=== PATIENT | female | born 1980 | race Caucasian/White ===

== ENCOUNTER 2017-11-25 09:31 | Emergency (ER) | payer BC ==
[2017-11-25 09:44] VITALS: BP 112/67
--- NOTE | 2017-11-25 09:59 | UC ---
Respiratory Complaint HPI - HPI Summary HPI Summary: Patient here today complains of 7 days chest and sinus congestion.Patient has been out of work since August due to 2 bilateral mastectomy, stage III breast cancer she is planning to return to work tomorrow. Both her parents who she lives with her here today the urgent care with similar symptoms sheet. She reports being exposed to nieces and nephews who had influenza but that was almost a month ago. Patient states she did not get flu vaccine this year patient continues to smoke cigarettes 1/2-1 pack per day - History of Current Complaint Chief Complaint: UCGeneralIllness Stated Complaint: SINUS ISSUE Time Seen by Provider: 11/25/17 09:51 Hx Obtained From: Patient Hx Last Menstrual Period: last week ?: No Onset/Duration: Sudden Onset, Lasting Days - 7, Still Present Timing: Constant Severity Initially: Moderate Severity Currently: Moderate Pain Intensity: 5 Pain Scale Used: Adult Non Verbal Character: Cough: Nonproductive Aggravating Factors: Nothing Alleviating Factors: Nothing Associated Signs And Symptoms: Positive: Chills, URI, Nasal Congestion, Sinus Discomfort - Allergies/Home Medications Allergies/Adverse Reactions: Allergies Allergy/AdvReac Type Severity Reaction Status Date / Time NSAIDS (Non-Steroidal Allergy Bleeding Verified 11/25/17 09:45 Anti-Inflamma narcotics Allergy Swelling Uncoded 11/25/17 09:45 Of Face,Lips,& Throat Home Medications: Home Medications Sertraline* [Zoloft*] 50 mg PO DAILY 11/25/17 [History Confirmed 11/25/17] Tamoxifen TAB* [Nolvadex 10 MG*] 20 mg PO DAILY 11/25/17 [History Confirmed ] PMH/Surg Hx/FS Hx/Imm Hx Previously Healthy: No Psychological History: Depression Cancer History: Breast Cancer - Surgical History Surgical History: Yes Surgery Procedure, Year, and Place: bladder sling 2008. Tubal Ligation. 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 Respiratory: Cough Cardiovascular: Negative Gastrointestinal: Negative Genitourinary: Negative Motor: Negative Neurovascular: Negative Musculoskeletal: Arthralgia Neurological: Headache Psychological: Negative Is Patient Immunocompromised?: No All Other Systems Reviewed And Are Negative: Yes Physical Exam Triage Information Reviewed: Yes Appearance: Ill-Appearing, Pain Distress - mild, Thin - Like eating I certainly did apply warm Vital Signs: Initial Vital Signs Temp 98.5 F 11/25/17 09:39 Pulse 68 11/25/17 09:39 Resp 18 11/25/17 09:39 BP 112/67 11/25/17 09:39 Pulse Ox 99 11/25/17 09:39 Vital Signs Reviewed: Yes Eye Exam: Normal Eyes: Positive: Conjunctiva Clear ENT Exam: Normal ENT: Positive: Normal ENT inspection, Hearing grossly normal, Pharynx normal, Nasal congestion, Nasal drainage, TMs normal, Sinus tenderness, Uvula midline. Negative: Tonsillar swelling, Trismus, Muffled voice, Hoarse voice, Dental tenderness Dental Exam: Normal Neck exam: Normal Neck: Positive: Supple, Nontender, No Lymphadenopathy Respiratory Exam: Normal Respiratory: Positive: Chest non-tender, Lungs clear, Normal breath sounds, No respiratory distress, No accessory muscle use Cardiovascular Exam: Normal Cardiovascular: Positive: RRR, No Murmur, Pulses Normal, Brisk Capillary Refill Musculoskeletal Exam: Normal Musculoskeletal: Positive: Strength Intact, ROM Intact, No Edema Neurological Exam: Normal Neurological: Positive: Alert Psychological Exam: Normal Skin Exam: Normal UC Diagnostic Evaluation - Laboratory O2 Sat by Pulse Oximetry: 99 Diagnostic Studies Comment: Influenza A/B (-) Respiratory Course/Dx - Course Course Of Treatment: Augmentin for sinus infection, Mucinex D, Flonase nasal spray, use probiotic will give taking the antibiotic, increase fluids, follow with primary care if needed - Differential Dx/Diagnosis Provider Diagnoses: Nicotine dependent, acute rhinosinusitis Discharge - Discharge Plan Condition: Stable Disposition: HOME Prescriptions: Amoxicillin/Clavulanate TAB* [Augmentin TAB 875*] 875 mg PO BID #20 tab Fluticasone NASAL SPRAY 50MCG* [Flonase NASAL SPRAY 50MCG*] 2 spray BOTH NARES DAILY #1 btl Patient Education Materials: Decongestant/Expectorant (By mouth), Probiotic ( By mouth), Sinusitis (ED), How to Use Nasal Combs (ED) Forms: *Work Release Referrals: Rachell Thomson MD [Primary Care Provider] - If Needed
== END 2017-11-25 10:52 | disposition home or self-care (01) ==
LOC: UCEAST 09:31
DX: J01.90 Acute sinusitis, unspecified (principal); F32.9 Major depressive disorder, single episode, unspecified; Z88.6 Allergy status to analgesic agent; Z88.5 Allergy status to narcotic agent; F17.210 Nicotine dependence, cigarettes, uncomplicated
CPT/HCPCS: 87502; 99202; G0463

== ENCOUNTER 2018-04-30 14:18 | Emergency (ER) | payer BC ==
[2018-04-30 14:43] VITALS: BP 102/67
--- NOTE | 2018-04-30 14:48 | UC ---
Skin Complaint HPI - HPI Summary HPI Summary: 37 yo female presents with red area to the back of her right lower leg. She tells me that she first noticed the area and thought it was a pimple 3 days ago. She popped it and drained a lot of "pus". Since that time the area has been red, swollen, and tender. She has not been applying anything OTC or keeping the area covered. Denies hx of MRSA. - History of Current Complaint Chief Complaint: UCSkin Time Seen by Provider: 04/30/18 14:48 Stated Complaint: SKIN ISSUE Hx Obtained From: Patient Hx Last Menstrual Period: last week Onset/Duration: Gradual Onset Skin Exposure Onset/Duration: Hours Ago Onset Severity: Moderate Current Severity: Severe Pain Intensity: 8 Pain Scale Used: 0-10 Numeric - Allergy/Home Medications Allergies/Adverse Reactions: Allergies Allergy/AdvReac Type Severity Reaction Status Date / Time NSAIDS (Non-Steroidal Allergy Bleeding Verified 04/30/18 14:43 Anti-Inflamma narcotics Allergy Swelling Uncoded 04/30/18 14:43 Of Face,Lips,& Throat Review of Systems Constitutional: Negative Skin: Other - Abscess right lower leg Respiratory: Negative Cardiovascular: Negative Neurovascular: Negative Neurological: Negative Psychological: Negative All Other Systems Reviewed And Are Negative: Yes PMH/Surg Hx/FS Hx/Imm Hx - Additional Past Medical History Additional PMH: BRCA - Surgical History Surgical History: Yes Surgery Procedure, Year, and Place: bladder sling 2009. Tubal Ligation. Bilateral masectomies - Family History Known Family History: Positive: Respiratory Disease - Social History Lives: With Family Alcohol Use: Occasionally Substance Use Type: Marijuana Substance Use Comment - Amount & Last Used: every other weekend Smoking Status (MU): Light Every Day Tobacco Smoker Type: Cigarettes Amount Used/How Often: 1 ppd Physical Exam - Summary Physical Exam Summary: GENERAL: NAD. WDWN. No pain distress. SKIN: Right lower leg: Posterior distal aspect with 1.0cm diameter abscess with central scab. Mild surrounding erythema and TTP. No induration. No streaking, bleeding, or drainage. NECK: Supple. Nontender. No lymphadenopathy. CHEST: No accessory muscle use. Breathing comfortably and in no distress. CV: Pulses intact. Cap refill <2seconds NEURO: Alert. CN II-XII grossly intact. PSYCH: Age appropriate behavior. Triage Information Reviewed: Yes Vital Signs: Initial Vital Signs Temp 98.4 F 04/30/18 14:39 Pulse 76 04/30/18 14:39 Resp 18 04/30/18 14:39 BP 102/67 04/30/18 14:39 Pulse Ox 100 04/30/18 14:39 Vital Signs Reviewed: Yes Course/Dx - Course Course Of Treatment: No drainage was able to be expressed, therefore no culture was obtained. Will cover for MRSA with bactrim. Wound was bandaged with a band- aid and pt advised to cover daily until well healed. - Diagnoses Provider Diagnoses: Abscess right lower leg Discharge - Sign-Out/Discharge Documenting (check all that apply): Patient Departure All imaging exams completed and their final reports reviewed: No Studies - Discharge Plan Condition: Stable Disposition: HOME Prescriptions: Sulfamethox/Trimethoprim DS* [Bactrim DS 800/160 TAB*] 1 tab PO BID #14 tab Patient Education Materials: Abscess (ED) Referrals: Rachell Thomson MD [Primary Care Provider] - Additional Instructions: If you develop a fever, shortness of breath, chest pain, new or worsening symptoms - please call your PCP or go to the ED. - Billing Disposition and Condition Condition: STABLE Disposition: Home
== END 2018-04-30 15:15 | disposition home or self-care (01) ==
LOC: UCEAST 14:18
DX: L02.415 Cutaneous abscess of right lower limb (principal); F17.210 Nicotine dependence, cigarettes, uncomplicated; Z88.6 Allergy status to analgesic agent; Z88.5 Allergy status to narcotic agent
CPT/HCPCS: 99212; G0463

== ENCOUNTER 2018-11-06 07:25 | Emergency (ER) | payer BC ==
[2018-11-06 07:32] VITALS: BP 108/71
--- NOTE | 2018-11-06 09:50 | ED ---
Throat Pain/Nasal Congestion - HPI Summary HPI Summary: Patient is a 38-year-old female who presents emergency department for irritation pain to her left eyelid times one day. Patient states when she woke up this morning she noticed some pain and redness to the outside of her upper eyelid. She does not wear contacts. Denies any injuries. Pain is mild in severity. Touching eye make symptoms worse. Nothing makes symptoms better. Otherwise denies upper respiratory symptoms. - History of Current Complaint Chief Complaint: EDEyeProblem Time Seen by Provider: 11/06/18 07:33 Hx Obtained From: Patient - Allergies/Home Medications Allergies/Adverse Reactions: Allergies Allergy/AdvReac Type Severity Reaction Status Date / Time NSAIDS (Non-Steroidal Allergy Bleeding Verified 11/06/18 07:33 Anti-Inflamma narcotics Allergy Swelling Uncoded 11/06/18 07:33 Of Face,Lips,& Throat PMH/Surg Hx/FS Hx/Imm Hx Previously Healthy: Yes Endocrine/Hematology History: Denies: Hx Diabetes, Hx Thyroid Disease Cardiovascular History: Denies: Hx Congestive Heart Failure, Hx Hypertension Respiratory History: Denies: Hx Asthma, Hx Chronic Obstructive Pulmonary Disease (COPD) GI History: Denies: Hx Ulcer History: Denies: Hx Renal Disease - Cancer History Cancer Type, Location and Year: Stage 3 breast cancer, right side, just completed chemo. - Surgical History Surgery Procedure, Year, and Place: bladder sling 2008. Tubal Ligation. Bilateral masectomies Infectious Disease History: No Infectious Disease History: Denies: Hx Hepatitis, Hx Human Immunodeficiency Virus (HIV), Traveled Outside the [place] in Last 30 Days - Family History Known Family History: Positive: Respiratory Disease - Social History Occupation: Employed Full-time Lives: With Family Alcohol Use: Occasionally Substance Use Type: Reports: Marijuana Substance Use Comment - Amount & Last Used: every other weekend Smoking Status (MU): Light Every Day Tobacco Smoker Type: Cigarettes Amount Used/How Often: 1 ppd Review of Systems Constitutional: Negative Negative: Fever, Chills Positive: Other - Pain and swelling . Negative: Photophobia, Blurred Vision Skin: Negative Neurological: Negative All Other Systems Reviewed And Are Negative: Yes Physical Exam Triage Information Reviewed: Yes Vital Signs On Initial Exam: Initial Vitals Temp Pulse Resp BP Pulse Ox 97.5 F 89 14 108/71 99 11/06/18 07:30 11/06/18 07:30 11/06/18 07:30 11/06/18 07:30 11/06/18 07:30 Vital Signs Reviewed: Yes Appearance: Positive: Well-Appearing - Pt. sitting on bed in NAD. Skin: Positive: Warm, Dry Head/Face: Positive: Normal Head/Face Inspection Eyes: Positive: Normal, EOMI, AGUEDA, Conjunctiva Clear, Other: - Very minimal erythema and edema to upper left lateral eyelid. No drainage. No surrounding erythema or edema. EOMI without pain. Neurological: Positive: Normal, CN Intact II-III Psychiatric: Positive: Affect/Mood Appropriate Diagnostics - Vital Signs Vital Signs Temp Pulse Resp BP Pulse Ox 11/06/18 07:53 97.5 F 89 16 108/71 99 11/06/18 07:30 97.5 F 89 14 108/71 99 - Laboratory Lab Statement: Any lab studies that have been ordered have been reviewed, and results considered in the medical decision making process. EENT Course/Dx - Course Course Of Treatment: We'll treat patient for very mild blepharitis. Advised to apply warm compresses 3 times a day. Erythromycin ointment prescribed. Ad[facility] and return to the ER for increased pain, redness, swelling, pain moving eye. Patient understands and agrees with plan. - Differential Diagnoses Differential Diagnoses: Conjunctivitis, Corneal Abrasion, Foreign Body - Diagnoses Provider Diagnoses: Blepharitis Discharge - Sign-Out/Discharge Documenting (check all that apply): Patient Departure Patient Received Moderate/Deep Sedation with Procedure: No - Discharge Plan Condition: Good Disposition: HOME Prescriptions: Erythromycin OPTH OINT* [Erythromycin 0.5% OPTH OINT*] 1 applic LEFT EYE TID #1 ophth.oint Patient Education Materials: Blepharitis (ED) Forms: *Work Release Referrals: [facility] [Outside] Additional Instructions: Can follow up with the [facility] if symptoms persist Apply warm compresses to left eye 3x a day Antibiotic ointment as directed Return to ER for increased pain, swelling, redness, fever - Billing Disposition and Condition Condition: GOOD Disposition: Home
== END 2018-11-06 07:53 | disposition home or self-care (01) ==
LOC: ED 07:25
DX: H01.006 Unspecified blepharitis left eye, unspecified eyelid (principal); F17.210 Nicotine dependence, cigarettes, uncomplicated; Z85.3 Personal history of malignant neoplasm of breast
CPT/HCPCS: 99282

== ENCOUNTER 2019-05-08 14:11 | Emergency (ER) | payer BC, OTHER ==
[2019-05-08 15:25] VITALS: BP 107/68
--- NOTE | 2019-05-08 17:26 | ED ---
Dizziness - HPI Summary HPI Summary: This patient is a 38-year-old female with a history of breast cancer who presents to the ED with left-sided lower jaw pain and swelling. She states she gets dental abscesses frequently as she is immunocompromised and currently on tamoxifen. She typically given a course of antibiotics which tends to help her symptoms. She states she has abscesses in her teeth frequently, however she is unable to afford to get her teeth pulled. She denies f/s/c. Denies dysphasia or odynophagia. Symptoms began yesterday and it remained persistent. She denies any drooling or hoarse voice. She denies any allergies. - History Of Current Complaint Chief Complaint: EDDentalPain Stated Complaint: ABSCESS TOOTH PER PT Time Seen by Provider: 05/08/19 14:34 Hx Obtained From: Patient Timing: Constant Severity Initially: Mild Severity Currently: Mild Aggravating Factor(s): Nothing Alleviating Factor(s): Nothing Associated Signs And Symptoms: Positive: Negative - Risk Factors Cardiac Risk Factors: Negative CVA Risk Factor: Negative - Allergies/Home Medications Allergies/Adverse Reactions: Allergies Allergy/AdvReac Type Severity Reaction Status Date / Time NSAIDS (Non-Steroidal Allergy Bleeding Verified 05/08/19 14:17 Anti-Inflamma narcotics Allergy Swelling Uncoded 05/08/19 14:17 Of Face,Lips,& Throat PMH/Surg Hx/FS Hx/Imm Hx Previously Healthy: Yes Endocrine/Hematology History: Denies: Hx Diabetes, Hx Thyroid Disease Cardiovascular History: Denies: Hx Congestive Heart Failure, Hx Hypertension Respiratory History: Denies: Hx Asthma, Hx Chronic Obstructive Pulmonary Disease (COPD) GI History: Denies: Hx Ulcer History: Denies: Hx Renal Disease - Cancer History Cancer Type, Location and Year: Stage 3 breast cancer, right side, just completed chemo. - Surgical History Surgery Procedure, Year, and Place: bladder sling 2009. Tubal Ligation. Bilateral masectomies - Immunization History Hx Pertussis Vaccination: No Immunizations Up to Date: Yes Infectious Disease History: No Infectious Disease History: Denies: Hx Hepatitis, Hx Human Immunodeficiency Virus (HIV), Traveled Outside the [place] in Last 30 Days - Family History Known Family History: Positive: Respiratory Disease - Social History Occupation: Employed Full-time Lives: With Family Alcohol Use: Occasionally Hx Substance Use: Yes Substance Use Type: Reports: Marijuana Substance Use Comment - Amount & Last Used: daily Smoking Status (MU): Light Every Day Tobacco Smoker Type: Cigarettes Amount Used/How Often: 1 ppd Review of Systems Negative: Fever, Chills, Fatigue, Skin Diaphoresis Positive: Dental Pain Negative: Palpitations, Chest Pain Negative: Shortness Of Breath, Cough Negative: Arthralgia, Myalgia Skin: Negative Neurological: Negative All Other Systems Reviewed And Are Negative: Yes Physical Exam Triage Information Reviewed: Yes Vital Signs On Initial Exam: Initial Vitals Temp Pulse Resp BP Pulse Ox 99.1 F 73 16 108/73 99 05/08/19 14:15 05/08/19 14:15 05/08/19 14:15 05/08/19 14:15 05/08/19 14:15 Vital Signs Reviewed: Yes Appearance: Positive: Well-Appearing, Well-Nourished Skin: Positive: Skin Color Reflects Adequate Perfusion Head/Face: Positive: Normal Head/Face Inspection Eyes: Positive: EOMI, Conjunctiva Clear Dental: Positive: Gross Decay/Caries @ - throughout, Dental Fracture @ - throughout Neck: Positive: Supple, No Lymphadenopathy Respiratory/Lung Sounds: Positive: Clear to Auscultation Cardiovascular: Positive: RRR, Pulses are Symmetrical in both Upper and Lower Extremities Musculoskeletal: Positive: Normal, Strength/ROM Intact Neurological: Positive: Sensory/Motor Intact, Alert, Oriented to Person Place, Time, Speech Normal Psychiatric: Positive: Normal, Affect/Mood Appropriate Diagnostics - Vital Signs Vital Signs Temp Pulse Resp BP Pulse Ox 05/08/19 15:23 97.4 F 58 16 107/68 99 05/08/19 14:15 99.1 F 73 16 108/73 99 - Laboratory Lab Statement: Any lab studies that have been ordered have been reviewed, and results considered in the medical decision making process. Dizzy Course/Dx - Course Course Of Treatment: During his course of treatment, the patient is evaluated for left-sided lower jaw swelling. She states she has a dental abscess and gets these frequently d/t her immoncompromised status. There is swelling to the L lower jaw without obvious fluctuant area. Broken teeth throughout with dental caries. Several extracted teeth. She is given penicillin. - Diagnoses Provider Diagnoses: Dental abscess, Dental caries Discharge ED - Sign-Out/Discharge Documenting (check all that apply): Patient Departure Patient Received Moderate/Deep Sedation with Procedure: No - Discharge Plan Condition: Stable Disposition: HOME Prescriptions: Penicillin VK 500 MG TAB(NF) [Penicillin VK 500 mg Tab(NF)] 500 mg PO QID #28 tab MDD 4 Patient Education Materials: Dental Abscess (ED) Referrals: No Primary Care Phys,NOPCP [Primary Care Provider] - Additional Instructions: Penicillin four times daily x 7 days - Billing Disposition and Condition Condition: STABLE Disposition: Home
== END 2019-05-08 15:23 | disposition home or self-care (01) ==
LOC: ED 14:11
DX: K04.7 Periapical abscess without sinus (principal); K02.9 Dental caries, unspecified; F17.210 Nicotine dependence, cigarettes, uncomplicated; Z88.6 Allergy status to analgesic agent; Z88.5 Allergy status to narcotic agent; Z85.3 Personal history of malignant neoplasm of breast; Z90.13 Acquired absence of bilateral breasts and nipples
CPT/HCPCS: 99282